=== PATIENT | female | born 1965 | race Caucasian/White ===

== ENCOUNTER 2018-05-10 11:46 | Emergency (ER) | payer OTHER ==
[~2018-05-10] VITALS: Ht 154.9 cm; Wt 54.5 kg
[~2018-05-10 11:46] MED LIST: ALBU8.5H8 IH; CEPH500 PO; CHLO120L TP; HYDR-4061 PO; LEVO88TA4 PO; METF500T6 PO; MULT-1192 PO; SIMV-261 PO
[2018-05-10 12:09] VITALS: BP 102/63
== END 2018-05-10 15:10 | disposition left against medical advice (07) ==
LOC: EMS 11:48
DX: M79.602 Pain in left arm (principal); J45.909 Unspecified asthma, uncomplicated; E11.9 Type 2 diabetes mellitus without complications; F17.210 Nicotine dependence, cigarettes, uncomplicated; E03.9 Hypothyroidism, unspecified; Z53.21 Procedure and treatment not carried out due to patient leaving prior to being seen by health care provider

== ENCOUNTER 2018-07-27 13:22 | Emergency (ER) | payer OTHER ==
[~2018-07-27] VITALS: Ht 165.1 cm; Wt 72.7 kg
[~2018-07-27 13:22] MED LIST changes: -CEPH500 PO; -CHLO120L TP; +METF-960 PO; -METF500T6 PO
[2018-07-27 13:39] LABS: GLUCOSE,POINT OF CARE 157 MG/DL (70-110)
[2018-07-27] MEDS ORDERED: KETOROLAC TROMETHAMINE 60 MG/2 ML VIAL IM ONE (15:00)
[2018-07-27 17:07] VITALS: BP 167/72
== END 2018-07-27 17:44 | disposition home or self-care (01) ==
LOC: EMS 13:22
DX: R60.0 Localized edema (principal); M79.602 Pain in left arm; M79.89 Other specified soft tissue disorders; G89.29 Other chronic pain; M25.532 Pain in left wrist; J45.909 Unspecified asthma, uncomplicated; E11.9 Type 2 diabetes mellitus without complications; E03.9 Hypothyroidism, unspecified; F17.210 Nicotine dependence, cigarettes, uncomplicated; Z87.81 Personal history of (healed) traumatic fracture; Z79.84 Long term (current) use of oral hypoglycemic drugs
CPT/HCPCS: 29105; 73080; 73110; 82962; 96372; 99284; 99406; J1885

== ENCOUNTER 2018-12-17 14:38 | Inpatient (IN) | payer OTHER ==
[~2018-12-17] VITALS: Ht 157.5 cm; Wt 56.8 kg
[2018-12-17 14:49] LABS: GLUCOSE,POINT OF CARE 95 MG/DL (70-110)
[2018-12-17] MEDS ORDERED: VANCOMYCIN HCL 1 GM/D5% WATER 200 ML IV ONE (16:30)
[2018-12-17] MEDS ORDERED: SODIUM CHLORIDE 0.9% 1,000 ML IV ONE ×2 (16:45→21:45)
[2018-12-17] MEDS ORDERED: KETOROLAC TROMETHAMINE 30 MG/ML VIAL IVP ONE (16:45)
[2018-12-17 16:59] LABS: BASOPHILS % (AUTO) 1.7 % (0.0-2.0); EOSINOPHILS % (AUTO) 2.2 % (1.0-6.0); HEMATOCRIT 35.7 % (36-46); HEMOGLOBIN 11.9 g/dL (12.0-16.0); LYMPHOCYTES # (AUTO) 2.3 K/uL (1.0-4.8); LYMPHOCYTES % (AUTO) 43.8 % (22.0-44.0); MEAN CORPUSCULAR HGB CONC 33.4 G/dL (31.0-37.0); MEAN CORPUSCULAR VOLUME 87 fL (80-100); MONOCYTES # (AUTO) 0.4 K/uL (0.1-1.0); NEUTROPHILS # (AUTO) 2.4 K/uL (1.8-7.7); NEUTROPHILS % (AUTO) 45.3 % (40.0-70.0); PLATELET COUNT (AUTO) 363 K/uL (150-450); RED BLOOD CELL COUNT(AUTO) 4.12 MIL/uL (4.00-5.20); RED CELL DISTRIBUTION WIDTH 15.5 % (11.5-14.5)
[2018-12-17 17:16] LABS: ANION GAP 11 mmol/L (8-16); CARBON DIOXIDE 28 mmol/L (22-29); CHLORIDE 100 mmol/L (98-107); CREATININE 0.66 mg/dL (0.60-1.30); GLOMERULAR FILTR. RATE CALC > 60 mL/min (>60); GLUCOSE,RANDOM 86 mg/dL (70-110); POTASSIUM 3.6 mmol/L (3.5-5.1); SODIUM SERUM 139 mmol/L (136-145); UREA NITROGEN, BLOOD 16 mg/dL (7-18)
[2018-12-17 17:21] LABS: ALANINE AMINOTRANSFERASE 19 U/L (12-78); ALBUMIN 3.7 g/dL (3.4-5.0); ALKALINE PHOSPHATASE 88 U/L (46-116); ASPARTATE AMINOTRANSFERASE 22 U/L (15-37); BILIRUBIN,TOTAL 0.3 mg/dL (0.1-1.0); TOTAL PROTEIN, SERUM 7.9 g/dL (6.4-8.2)
[2018-12-17 17:24] LABS: LACTIC ACID 0.9 mmol/L (0.4-2.0)
[2018-12-17] MEDS ORDERED: SODIUM CHLORIDE 0.9% 100 ML ONE (17:43)
[2018-12-17] MEDS ORDERED: IOVERSOL 320 MG/ML 100 ML VIAL ONE (17:43)
[2018-12-17] MEDS ORDERED: MetroNIDAZOLE 500 MG/NACL 100 ML IV ONE (19:15)
[2018-12-17] MEDS ORDERED: CIPROFLOXACIN 400 MG/D5% WATER 200 ML IV ONE (19:15)
[2018-12-17] MEDS ORDERED: ONDANSETRON HCL 4 MG/2 ML VIAL IVP PRN ×2 (19:30→21:45)
[2018-12-17] MEDS ORDERED: MORPHINE SULFATE 4 MG/ML SYRINGE IVP ONE (19:30)
[2018-12-17] MEDS ORDERED: ACETAMINOPHEN 325 MG TABLET PO PRN ×2 (19:30→21:45)
[2018-12-17] MEDS ORDERED: 0.9% SODIUM CHLORIDE 10 ML SYRINGE IVP PRN (19:30)
[2018-12-17 21:43] VITALS: BP 107/66
[2018-12-17] MEDS ORDERED: ALBUTEROL SULFATE HFA 90 MCG/PUFF 8 GM INHALER IH PRN (21:45)
[2018-12-17] MEDS ORDERED: BISACODYL 10 MG RECTAL RECTAL SUPPOSITORY PR PRN (21:45)
[2018-12-17] MEDS ORDERED: ZOLPIDEM TARTRATE 5 MG TABLET PO PRN (21:45)
[2018-12-17] MEDS ORDERED: MAGNESIUM HYDROXIDE SUSPENSION 30 ML UDCUP PO PRN (21:45)
[2018-12-17] MEDS: MORPHINE SULFATE 2 MG/ML SYRINGE IVP PRN (22:31)
[2018-12-17] MEDS: HEPARIN SODIUM,PORCINE 5,000 UNITS/ML VIAL SQ SCH (23:59)
[2018-12-18 00:25] VITALS: BP 116/73
[2018-12-18 03:06] LABS: GLUCOMETER DEV NAME(LOC) 6N.2; GLUCOSE,POINT OF CARE 97 MG/DL (70-110)
[2018-12-18] MEDS: MetroNIDAZOLE 500 MG/NACL 100 ML IV SCH ×3 (04:12→20:43)
[2018-12-18 04:35] VITALS: BP 151/75
[2018-12-18] MEDS: LEVOTHYROXINE SODIUM 88 MCG TABLET PO SCH (06:13)
[2018-12-18] MEDS: MORPHINE SULFATE 2 MG/ML SYRINGE IVP PRN ×2 (06:23→17:41)
[2018-12-18 06:25] LABS: BASOPHILS % (AUTO) 0.8 % (0.0-2.0); EOSINOPHILS % (AUTO) 1.7 % (1.0-6.0); HEMATOCRIT 31.5 % (36-46); HEMOGLOBIN 10.8 g/dL (12.0-16.0); LYMPHOCYTES # (AUTO) 2.2 K/uL (1.0-4.8); LYMPHOCYTES % (AUTO) 47.5 % (22.0-44.0); MEAN CORPUSCULAR HEMOGLOBIN 29.4 pg (26.0-34.0); MEAN CORPUSCULAR HGB CONC 34.2 G/dL (31.0-37.0); MEAN CORPUSCULAR VOLUME 86 fL (80-100); MONOCYTES # (AUTO) 0.4 K/uL (0.1-1.0); MONOCYTES % (AUTO) 8.8 % (2.0-9.0); NEUTROPHILS # (AUTO) 1.9 K/uL (1.8-7.7); NEUTROPHILS % (AUTO) 41.2 % (40.0-70.0); PLATELET COUNT (AUTO) 350 K/uL (150-450); RED BLOOD CELL COUNT(AUTO) 3.66 MIL/uL (4.00-5.20); RED CELL DISTRIBUTION WIDTH 15.1 % (11.5-14.5)
[2018-12-18 06:48] LABS: ANION GAP 8 mmol/L (8-16); CALCIUM, TOTAL 8.3 mg/dL (8.8-10.5); CARBON DIOXIDE 29 mmol/L (22-29); CHLORIDE 102 mmol/L (98-107); CREATININE 0.63 mg/dL (0.60-1.30); GLOMERULAR FILTR. RATE CALC > 60 mL/min (>60); GLUCOSE,RANDOM 110 mg/dL (70-110); POTASSIUM 3.1 mmol/L (3.5-5.1); SODIUM SERUM 139 mmol/L (136-145); UREA NITROGEN, BLOOD 11 mg/dL (7-18)
[2018-12-18 06:50] LABS: GLUCOMETER DEV NAME(LOC) 6N.2; GLUCOSE,POINT OF CARE 86 MG/DL (70-110)
[2018-12-18 07:33] VITALS: BP 130/75
[2018-12-18] MEDS: CIPROFLOXACIN 400 MG/D5% WATER 200 ML IV SCH ×2 (08:35→22:14)
[2018-12-18] MEDS: PANTOPRAZOLE SODIUM 40 MG DR TABLET PO SCH (08:36)
[2018-12-18] MEDS: DOCUSATE SODIUM 100 MG CAPSULE PO SCH ×2 (08:36→20:44)
[2018-12-18] MEDS: HEPARIN SODIUM,PORCINE 5,000 UNITS/ML VIAL SQ SCH ×2 (08:36→17:41)
[2018-12-18] MEDS: HYDROCODONE/ACETAMINOPHEN 5-325 MG TABLET PO PRN (13:36)
[2018-12-18 15:31] VITALS: BP 134/78
[2018-12-18 20:26] VITALS: BP 115/73
[2018-12-18] MEDS ORDERED: SIMVASTATIN 40 MG TABLET PO SCH (21:00)
[2018-12-19 00:07] VITALS: BP 129/78
[2018-12-19] MEDS: HEPARIN SODIUM,PORCINE 5,000 UNITS/ML VIAL SQ SCH ×2 (00:25→08:12)
[2018-12-19] MEDS: MORPHINE SULFATE 2 MG/ML SYRINGE IVP PRN (00:30)
[2018-12-19 04:00] VITALS: BP 135/87
[2018-12-19] MEDS: MetroNIDAZOLE 500 MG/NACL 100 ML IV SCH ×2 (04:09→12:00)
[2018-12-19] MEDS: LEVOTHYROXINE SODIUM 88 MCG TABLET PO SCH (05:16)
[2018-12-19 06:44] LABS: GLUCOMETER DEV NAME(LOC) 6N.1; GLUCOSE,POINT OF CARE 109 MG/DL (70-110)
[2018-12-19 06:45] LABS: BASOPHILS % (AUTO) 0.5 % (0.0-2.0); EOSINOPHILS % (AUTO) 1.3 % (1.0-6.0); HEMATOCRIT 36.5 % (36-46); HEMOGLOBIN 12.2 g/dL (12.0-16.0); LYMPHOCYTES # (AUTO) 2.2 K/uL (1.0-4.8); LYMPHOCYTES % (AUTO) 41.5 % (22.0-44.0); MEAN CORPUSCULAR HEMOGLOBIN 29.2 pg (26.0-34.0); MEAN CORPUSCULAR HGB CONC 33.6 G/dL (31.0-37.0); MEAN CORPUSCULAR VOLUME 87 fL (80-100); MONOCYTES # (AUTO) 0.4 K/uL (0.1-1.0); MONOCYTES % (AUTO) 8.1 % (2.0-9.0); NEUTROPHILS # (AUTO) 2.5 K/uL (1.8-7.7); NEUTROPHILS % (AUTO) 48.6 % (40.0-70.0); PLATELET COUNT (AUTO) 385 K/uL (150-450); RED CELL DISTRIBUTION WIDTH 15.7 % (11.5-14.5)
[2018-12-19] MEDS: HYDROCODONE/ACETAMINOPHEN 5-325 MG TABLET PO PRN ×2 (07:06→10:58)
[2018-12-19 07:10] LABS: ANION GAP 11 mmol/L (8-16); CALCIUM, TOTAL 8.8 mg/dL (8.8-10.5); CARBON DIOXIDE 27 mmol/L (22-29); CHLORIDE 101 mmol/L (98-107); CREATININE 0.64 mg/dL (0.60-1.30); GLOMERULAR FILTR. RATE CALC > 60 mL/min (>60); GLUCOSE,RANDOM 112 mg/dL (70-110); POTASSIUM 3.3 mmol/L (3.5-5.1); SODIUM SERUM 139 mmol/L (136-145); UREA NITROGEN, BLOOD 10 mg/dL (7-18)
[2018-12-19 08:02] VITALS: BP 132/88
[2018-12-19] MEDS: DOCUSATE SODIUM 100 MG CAPSULE PO SCH (08:09)
[2018-12-19] MEDS: CIPROFLOXACIN 400 MG/D5% WATER 200 ML IV SCH ×2 (08:12→09:06)
[2018-12-19] MEDS: PANTOPRAZOLE SODIUM 40 MG DR TABLET PO SCH (08:12)
[2018-12-19] MEDS ORDERED: CIPR-278 PO (11:14)
[2018-12-19] MEDS ORDERED: METR500 PO (11:15)
[2018-12-19 11:36] VITALS: BP 130/92
== END 2018-12-19 12:20 | disposition home or self-care (01) | DRG 383 ==
LOC: EMS 14:40 → 6N 20:00
PROVIDERS: ADMIT Internal Medicine; ATTEND Internal Medicine
DX: L03.311 Cellulitis of abdominal wall (principal); E44.0 Moderate protein-calorie malnutrition; E03.9 Hypothyroidism, unspecified; E11.9 Type 2 diabetes mellitus without complications; K52.9 Noninfective gastroenteritis and colitis, unspecified; J45.909 Unspecified asthma, uncomplicated; E78.5 Hyperlipidemia, unspecified; F19.10 Other psychoactive substance abuse, uncomplicated; L02.211 Cutaneous abscess of abdominal wall; Z87.891 Personal history of nicotine dependence; Z68.22 Body mass index [BMI] 22.0-22.9, adult
CPT/HCPCS: 74177; 83605; 87040; 87081; 96365; 96367; 96375; G0378; J0744; J1644; J1885; J2270; J3370; J3490; J7030; J7050

== ENCOUNTER 2018-12-21 18:25 | Emergency (ER) | payer OTHER ==
[~2018-12-21] VITALS: Ht 152.4 cm; Wt 54.5 kg
[~2018-12-21 18:25] MED LIST changes: +CIPR-278 PO; +METR500 PO
[2018-12-21 18:44] LABS: GLUCOSE,POINT OF CARE 116 MG/DL (70-110)
[2018-12-21 19:54] LABS: GLUCOSE,POINT OF CARE 129 MG/DL (70-110)
[2018-12-21 22:21] VITALS: BP 127/84
== END 2018-12-21 22:39 | disposition home or self-care (01) ==
LOC: EMS 18:26
DX: L02.211 Cutaneous abscess of abdominal wall (principal); J45.909 Unspecified asthma, uncomplicated; E11.9 Type 2 diabetes mellitus without complications; E03.9 Hypothyroidism, unspecified; F17.210 Nicotine dependence, cigarettes, uncomplicated; Z48.00 Encounter for change or removal of nonsurgical wound dressing; Z79.84 Long term (current) use of oral hypoglycemic drugs

== ENCOUNTER 2020-01-04 20:15 | Emergency (ER) | payer OTHER ==
[~2020-01-04] VITALS: Ht 157.5 cm; Wt 59.0 kg
[2020-01-04 20:33] LABS: GLUCOSE,POINT OF CARE 136 MG/DL (70-110)
[2020-01-04] MEDS ORDERED: KETOROLAC TROMETHAMINE 60 MG/2 ML VIAL IM ONE (22:30)
[2020-01-05 00:05] VITALS: BP 124/71
== END 2020-01-05 00:11 | disposition home or self-care (01) ==
LOC: EMS 20:16
DX: M25.522 Pain in left elbow (principal); M21.822 Other specified acquired deformities of left upper arm; E11.9 Type 2 diabetes mellitus without complications; E03.9 Hypothyroidism, unspecified; J45.909 Unspecified asthma, uncomplicated; F17.210 Nicotine dependence, cigarettes, uncomplicated; Z79.899 Other long term (current) drug therapy; Z79.84 Long term (current) use of oral hypoglycemic drugs
CPT/HCPCS: 73080; 82962; 96372; 99283; J1885